=== PATIENT | male | born 1970 | race Caucasian/White ===

== ENCOUNTER 2017-09-23 03:30 | Emergency (ER) | payer BC ==
--- NOTE | 2017-09-23 04:14 | ER Document Report ---
ED General - General Chief Complaint: Palpitations Stated Complaint: DIZZINESS PALPITATIONS Time Seen by Provider: 09/23/17 04:00 Notes: Patient is a 46-year-old male that comes emergency department for chief complaint of regular sensations of palpitations, he states that occasionally he feels lightheaded, he denies syncope, he denies chest pain, he denies shortness of breath. He states that he has noticed this more over the past few days. He states that previously a couple of years ago he had a event monitor for a couple of days but never had the sensation during the monitoring. He denies smoking, he reports infrequent alcohol, he denies any daily medications. When asked he admits to large quantities of caffeine daily. TRAVEL OUTSIDE OF THE [place] IN LAST 30 DAYS: No - Related Data Allergies/Adverse Reactions: No Known Allergies Allergy (Unverified 09/23/17 03:42) Past Medical History - General Information source: Patient - Social History Smoking Status: Never Smoker Frequency of alcohol use: Occasional Drug Abuse: None Lives with: Alone Family History: Reviewed & Not Pertinent - Medical History Medical History: Negative Surgical Hx: Negative - Immunizations Immunizations up to date: Yes Review of Systems - Review of Systems Constitutional: No symptoms reported EENT: No symptoms reported Cardiovascular: See HPI Respiratory: No symptoms reported Gastrointestinal: No symptoms reported Genitourinary: No symptoms reported Male Genitourinary: No symptoms reported Musculoskeletal: No symptoms reported Skin: No symptoms reported Hematologic/Lymphatic: No symptoms reported Neurological/Psychological: See HPI Physical Exam - Vital signs Vitals: Resp Pulse Ox 14 98 09/23/17 03:52 09/23/17 03:52 Interpretation: Normal - General General appearance: Appears well, Alert - HEENT Head: Normocephalic, Atraumatic Eyes: Normal Pupils: PERRL - Respiratory Respiratory status: No respiratory distress Chest status: Nontender Breath sounds: Normal. No: Decreased air movement, Wheezing Chest palpation: Normal - Cardiovascular Rhythm: Regular. No: Extrasystoles, Tachycardia Heart sounds: Normal auscultation, S1 appreciated, S2 appreciated Murmur: No - Abdominal Inspection: Normal Distension: No distension Bowel sounds: Normal Tenderness: Nontender. No: Tender, Guarding - Back Back: Normal, Nontender. No: Tender, Vertebra tenderness - Extremities General upper extremity: Normal inspection, Nontender, Normal strength, Normal temperature General lower extremity: Normal inspection, Nontender, Normal strength, Normal temperature - Neurological Neuro grossly intact: Yes Cognition: Normal Orientation: AAOx4 [place] Coma Scale Eye Opening: Spontaneous [place] Coma Scale Verbal: Oriented [place] Coma Scale Motor: Obeys Commands [place] Coma Scale Total: 15 Speech: Normal Motor strength normal: LUE, RUE, LLE, RLE Sensory: Normal - Psychological Associated symptoms: Normal affect, Normal mood - Skin Skin Temperature: Warm Skin Moisture: Dry Skin Color: Normal Course - Re-evaluation Re-evalutation: CBC unremarkable except for mild eosinophilic shift. Chemistry unremarkable other than mild hypokalemia. Magnesium normal. EKG sinus rhythm with a SC interval, normal T waves and ST segment. TSH is unremarkable. Patient's reported symptoms consistent with PVCs, he consumes a very large amount of caffeine daily, he admits that he does not stay hydrated. Recommended that he improve hydration, reduce caffeine, follow-up for additional management. At this time patient will not be started on a beta- yuko, this was discussed. Patient asymptomatic at discharge. Discussed return precautions, patient states understanding and agreement. - Vital Signs Vital signs: Temp Pulse Resp BP Pulse Ox 17 123/76 96 09/23/17 05:35 09/23/17 05:35 09/23/17 05:35 - Laboratory Result Diagrams: 09/23/17 04:13 09/23/17 04:13 Laboratory results interpreted by me: 09/23/17 09/23/17 04:13 04:13 Seg Neutrophils % 41.7 L Eosinophils % 10.1 H Absolute Eosinophils 0.8 H Potassium 3.5 L Chloride 108 H Discharge - Discharge Clinical Impression: Palpitations Condition: Stable Disposition: HOME, SELF-CARE Additional Instructions: Your workup shows low potassium in your symptoms and blood work suggests that you have seasonal allergies. Remaining workup does not show any concerning other abnormalities. Your symptoms suggest that you were having extra heartbeats called PVCs. I recommend that you reduce your caffeine intake and improve your hydration to reduce the symptoms. If symptoms continue follow-up with cardiology referral. Return for any concerning or worsening symptoms including passing out, chest pain, or any other concerning symptoms. Forms: Return to Work, Treatment of Relative/Child
[2017-09-23 04:23] LABS: ABSOLUTE EOSINOPHILS # (AUTO) 0.8 10^3/uL (0.0-0.6); ABSOLUTE MONOCYTES (AUTO) 0.6 10^3/uL (0.1-1.4); ABSOLUTE NEUT (AUTO) 3.1 10^3/uL (1.7-8.2); BASOPHILS % (AUTO) 0.6 % (0-2); EOSINOPHILS % (AUTO) 10.1 % (0-6); HEMATOCRIT 43.5 % (37.9-51.0); HEMOGLOBIN 15.4 g/dL (13.5-17.0); HGB HCT DIFFERENCE 2.7; LYMPHOCYTES % (AUTO) 39.9 % (13-45); MEAN CORPUSCULAR HEMOGLOBIN 29.9 pg (27.0-33.4); MEAN CORPUSCULAR HGB CONC 35.3 g/dL (32.0-36.0); MEAN CORPUSCULAR VOLUME 85 fl (80-97); MONOCYTES % (AUTO) 7.7 % (3-13); RED BLOOD COUNT 5.14 10^6/uL (4.35-5.55); RED CELL DISTRIBUTION WIDTH 13.7 % (11.5-14.0); SEGMENTED NEUTROPHILS % (AUTO) 41.7 % (42-78); WHITE BLOOD COUNT 7.5 10^3/uL (4.0-10.5)
[2017-09-23 04:44] LABS: ALANINE AMINOTRANSFERASE 25 U/L (21-72); ALBUMIN 4.1 g/dL (3.5-5.0); ALKALINE PHOSPHATASE 52 U/L (38-126); ANION GAP 10 (5-19); ASPARTATE AMINO TRANSFERASE 28 U/L (17-59); BILIRUBIN,DIRECT 0.1 mg/dL (0.0-0.4); BILIRUBIN,TOTAL 0.3 mg/dL (0.2-1.3); BLOOD UREA NITROGEN 13 mg/dL (7-20); CALCIUM 8.8 mg/dL (8.4-10.2); CARBON DIOXIDE 27 mmol/L (22-30); CHLORIDE 108 mmol/L (98-107); CREATININE RESULT 0.81 mg/dL (0.52-1.25); GLUCOSE 91 mg/dL (75-110); POTASSIUM 3.5 mmol/L (3.6-5.0); SODIUM 144.5 mmol/L (137-145); TOTAL PROTEIN 6.7 g/dL (6.3-8.2)
[2017-09-23] MEDS ORDERED: POTASSIUM CHLORIDE 10 MEQ TABLET.SA PO ONE (05:16)
[2017-09-23 05:39] VITALS: BP 123/76
--- NOTE | 2017-09-23 07:51 | EKG REPORT ---
SEVERITY:- NORMAL ECG - SINUS RHYTHM : Confirmed by: Jame Manzanares MD 23-Sep-2017 07:50:38
== END 2017-09-23 05:40 | disposition home or self-care (01) ==
LOC: ER 03:30
DX: R00.2 Palpitations (principal); R42 Dizziness and giddiness
CPT/HCPCS: 36415; 80053; 83735; 84443; 85025; 93005; 93010; 99285